=== PATIENT | male | born 1950 | race Caucasian/White ===

== ENCOUNTER 2019-11-05 14:55 | Observation (INO) ==
[2019-11-05] MEDS ORDERED: SODIUM CHLORIDE 0.9% 1,000 ML IV STA (15:22)
[2019-11-05 15:53] LABS: Basophils # 0.1 10*3/uL (0.0-0.2); Basophils % 0.4 % (0.0-0.8); Eosinophils # 0.1 10*3/uL (0.0-0.87); Eosinophils % 0.4 % (0.00-10.9); Hematocrit 44.6 VOL% (42.0-52.0); Hemoglobin 14.6 GM/DL (14.0-18.0); Immature Granulocytes % 0.3 %; Immature Granulocytes Absolute 0.04 #; Lymphocytes # 0.9 10*3/uL (1.4-4.0); Lymphocytes % 5.9 % (21.2-54.2); Mean Corpuscular HGB Conc 32.7 GM/DL (32-36); Mean Corpuscular Volume 84.3 FL (87-102); Mean Platelet Volume 10.5 FL (9.6-12.0); Monocytes % 2.6 % (1.7-12.7); Neutrophils % 90.4 % (38.7-73.9); Platelet Count 169 T/CUMM (130-400); Red Blood Count 5.29 MC/CUMM (3.8-5.5); Red Cell Distribution Width 14.7 % (9.3-17.3); White Blood Count 14.4 T/CUMM (4-12)
[2019-11-05 16:00] LABS: Albumin 3.5 G/DL (3.4-5.0); Bilirubin,Total 0.5 MG/DL (0.2-1.0); Calcium 8.9 MG/DL (8.5-10.1); Total Protein 7.8 G/DL (6.4-8.3)
[2019-11-05] MEDS ORDERED: ONDANSETRON 4 MG/2 ML VIAL IV STA (16:02)
[2019-11-05 16:06] LABS: INR 1.1; PT Patient Result 11.9 SECS (9.8-11.9); Partial Thromboplastin Time 31.3 SECS (23.9-33.8)
[2019-11-05] MEDS ORDERED: NITROGLYCERIN SL 0.4 MG TABLET SL PRN (16:33)
[2019-11-05] MEDS ORDERED: SIMETHICONE CHEW 125 MG TABLET PO PRN (16:35)
[2019-11-05] MEDS ORDERED: CALCIUM CARBONATE CHEW 500 MG TABLET PO PRN (16:35)
[2019-11-05] MEDS ORDERED: DOCUSATE SODIUM 100 MG CAPSULE PO PRN (16:35)
[2019-11-05] MEDS ORDERED: ALUMINUM/MAGNES/SIMETH MAX STR 30 ML UDCUP PO PRN (16:35)
[2019-11-05] MEDS ORDERED: GLUCAGON 1 MG VIAL IM PRN (16:35)
[2019-11-05] MEDS ORDERED: LACTULOSE 20 GM/30 ML UDCUP PO PRN (16:35)
[2019-11-05] MEDS ORDERED: ACETAMINOPHEN 325 MG TABLET PO PRN (16:35)
[2019-11-05] MEDS ORDERED: hydrALAZINE 20 MG/1 ML VIAL IV PRN (16:35)
[2019-11-05] MEDS ORDERED: BISACODYL 5 MG TABLET PO PRN (16:35)
[2019-11-05] MEDS ORDERED: DEXTROSE 10% 250 ML BAG IV PRN (16:35)
[2019-11-05] MEDS: FUROSEMIDE 40 MG/4 ML VIAL IV SCH (17:46)
[2019-11-05] MEDS: CLINDAMYCIN INJ 600 MG in PREMIX 1 EACH IV SCH ×2 (17:47→23:28)
[2019-11-05 19:02] LABS: Apearance,Urine CLEAR (Clear); Bilirubin,Urine Negative (Negative); Blood, Urine Negative (Negative); Glucose,Urine (UA) Negative (Negative); Ketones,Urine Negative (Negative); Mucus,Urine Occasional /LPF (Occasional); Nitrite,Urine Negative (Negative); Protein,Urine Negative; Urine Color Yellow (Yellow); Urine Urobilinogen < 2.0 EU/DL (0.2-1.0); WBC,Urine 1 /HPF (0-6)
[2019-11-05] MEDS ORDERED: SODIUM CHLORIDE 0.9% 800 ML IV ONE (23:10)
[2019-11-05] MEDS: OXcarbazepine 300 MG TABLET PO SCH (23:31)
[2019-11-06 05:13] LABS: Basophils # 0.1 10*3/uL (0.0-0.2); Basophils % 0.3 % (0.0-0.8); Eosinophils % 0.2 % (0.00-10.9); Hemoglobin 12.8 GM/DL (14.0-18.0); Immature Granulocytes % 0.6 %; Immature Granulocytes Absolute 0.11 #; Lymphocytes # 1.2 10*3/uL (1.4-4.0); Lymphocytes % 6.8 % (21.2-54.2); Mean Corpuscular HGB Conc 32.8 GM/DL (32-36); Mean Corpuscular Volume 85.2 FL (87-102); Mean Platelet Volume 10.3 FL (9.6-12.0); Monocytes % 4.3 % (1.7-12.7); Neutrophils % 87.8 % (38.7-73.9); Platelet Count 150 T/CUMM (130-400); Red Blood Count 4.58 MC/CUMM (3.8-5.5); White Blood Count 17.6 T/CUMM (4-12)
[2019-11-06] MEDS: CLINDAMYCIN INJ 600 MG in PREMIX 1 EACH IV SCH ×2 (05:51→14:51)
[2019-11-06 05:54] LABS: Albumin 2.9 G/DL (3.4-5.0); Bilirubin,Total 1.2 MG/DL (0.2-1.0); Osmolality,Calculated 273.1 MOS/KG (273-304); Risk Ratio 3.19; Thyroid Stimulating Hormone 4.02 uIU/ml (0.358-3.74); Total Protein 6.6 G/DL (6.4-8.3); VLDL CHOLESTEROL 12.6 MG/DL
[2019-11-06] MEDS: OXcarbazepine 300 MG TABLET PO SCH ×2 (09:09→21:33)
[2019-11-06] MEDS: AMIODARONE 200 MG TABLET PO SCH (09:09)
[2019-11-06] MEDS: PANTOPRAZOLE 40 MG TABLET PO SCH (09:09)
[2019-11-06] MEDS: FUROSEMIDE 40 MG/4 ML VIAL IV SCH ×2 (09:10→18:08)
[2019-11-06] MEDS: TERAZOSIN 5 MG CAPSULE PO SCH (09:13)
[2019-11-06] MEDS ORDERED: MAGNESIUM SULF RIDER 2 GM in PREMIX 1 EACH IV PRN (09:31)
[2019-11-06] MEDS ORDERED: MAGNESIUM SULF RIDER 4 GM in PREMIX 1 EACH IV PRN (09:31)
[2019-11-06] MEDS: ceFAZolin 1,000 MG in SYRINGE 1 EACH IV SCH ×2 (11:42→21:33)
[2019-11-07] MEDS: ceFAZolin 1,000 MG in SYRINGE 1 EACH IV SCH ×2 (03:05→12:36)
[2019-11-07 04:55] LABS: Basophils % 0.3 % (0.0-0.8); Eosinophils # 0.1 10*3/uL (0.0-0.87); Eosinophils % 0.4 % (0.00-10.9); Hemoglobin 12.6 GM/DL (14.0-18.0); Immature Granulocytes % 0.6 %; Immature Granulocytes Absolute 0.07 #; Lymphocytes # 1.2 10*3/uL (1.4-4.0); Mean Corpuscular HGB Conc 32.3 GM/DL (32-36); Mean Corpuscular Volume 87.1 FL (87-102); Mean Platelet Volume 11.2 FL (9.6-12.0); Monocytes % 6.6 % (1.7-12.7); Neutrophils % 82.1 % (38.7-73.9); Platelet Count 157 T/CUMM (130-400); Red Blood Count 4.48 MC/CUMM (3.8-5.5); White Blood Count 11.7 T/CUMM (4-12)
[2019-11-07 05:29] LABS: Albumin 2.9 G/DL (3.4-5.0); Bilirubin,Total 0.8 MG/DL (0.2-1.0); Calcium 8.5 MG/DL (8.5-10.1); Osmolality,Calculated 269.4 MOS/KG (273-304)
[2019-11-07 09:00] VITALS: BP 142/79
[2019-11-07] MEDS: FUROSEMIDE 40 MG/4 ML VIAL IV SCH (10:13)
[2019-11-07] MEDS: TERAZOSIN 5 MG CAPSULE PO SCH (10:15)
[2019-11-07] MEDS: OXcarbazepine 300 MG TABLET PO SCH (10:15)
[2019-11-07] MEDS: PANTOPRAZOLE 40 MG TABLET PO SCH (10:15)
[2019-11-07] MEDS: AMIODARONE 200 MG TABLET PO SCH (10:16)
== END 2019-11-07 12:35 | disposition home or self-care (01) ==
LOC: N.ED 14:55 → N.EDINP 14:55 → N.3E 18:07
PROVIDERS: ADMIT Internal Medicine Geriatric Medicine; ATTEND Internal Medicine Geriatric Medicine